=== PATIENT | female | born 1970 | race Caucasian/White ===

== ENCOUNTER 2016-08-23 19:49 | Inpatient (IN) | payer MEDICARE ==
[~2016-08-23 19:49] MED LIST: ADVAIR 2501 DISK W/D INH; ADVAIR 25028 BLISTE1 PO; ADVIL200 M1 PO; ALLER-FLO15.8 ML; ASPIR-TRIN325 MG PO; BACTRIM DS TABL1 TAB PO; CIPRO500 MG PO; COMBIVENT INH14.7 G1 IH; COMBIVENT RESPIM4 G1 INH; COMPAZINE25 MG/SUPP PR; CYMBALTA60 M1 PO; DULOXETINE HCL30 M1 PO; DUONEB 2.5-0.5MG3 M1 NEB; ESTROGEN; FLAGYL500 M1 PO; GABAPENTIN300 MG PO; HUMALOG100 U/ML SQ; HUMULIN R SC; LANTUS SOLOSTAR3 ML SQ; LEVAQUIN750 M1 PO; LEVAQUIN750 MG PO; LEVEMIR FL100 UNIT/2 SQ; LEVEMIR100 UNITS/ SC; LEXAPRO10 MG; LIDOCAINE 5% OINTMEN; LYRICA150 MG PO; LYRICA150 MG/CAP PO; LYRICA200 M1 PO; LYRICA75 MG PO; MELATIN3 MG PO; MELATONIN3 M4 PO; MELOXICAM15 M1 PO; NEURONTIN300 MG PO; NORCO 5/325 TAB1 TAB PO; NORCO 7.5/3251 TA3 PO; NORTRIPTYLINE H25 M1 PO; NOVOLOG FL100 UNIT/2 SQ; NOVOLOG100 UNITS/ SC; PERCOCET 5-3251 EACH PO; PHENERGAN25 MG/SUPP RC; PROTONIX40 MG; SINGULAIR10 M1 PO; TOPIRAMATE25 M3 PO; TOUJEO SOL300 UNIT/1 SC; TRAMADOL HCL50 M2 PO; TRAZODONE HCL100 M1 PO; TRESIBA FL100 UNIT/1 SC; VENTOLIN HFA18 G2 PO; VENTOLIN HFA18 GM INH; VIIBRYD40 MG PO; VITAMIN D2000 UNI1 PO; ZITHROMAX250 M1 PO; ZITHROMAX250MG Z-PAK PO; ZITHROMAX500 M2 PO; ZOFRAN ODT4 MG/UDTAB PO; ZOLOFT100 M1 PO; ZOLOFT100 MG PO; [UNRECOGNIZED DRUG - OTHER]
[2016-08-23] MEDS ORDERED: HUMULIN R500 UNIT/2 SC (21:11)
[2016-08-23] MEDS ORDERED: SPIRIVA18 MC1 INH (21:14)
[2016-08-23 22:31] LABS: BASO % 0.3 % (0-2); EOS % 0.5 % (0-7); EOSINOPHIL ABSOLUTE COUNT 0.1 tho/cmm (0.0-0.7); HCT-HEMATOCRIT 40.6 % (34.0-49.0); HGB-HEMOGLOBIN 13.6 gm/dl (12.0-15.5); IMMATURE GRANULOCYTES ABSOLUTE 0.01 tho/cmm (0-0.03); IMMATURE GRANULOCYTES PERCENT 0.1 % (0-0.3); LYMPH ABSOLUTE COUNT 2.7 tho/cmm (0.8-4.5); MCH (MEAN CORPUSCULAR HGB) 31.9 pg (28.0-32.0); MCHC MEAN CORPUSCULAR HGB CONC 33.5 % (32.0-36.0); MCV (MEAN CELL VOLUME) 95.3 fl (82.0-96.0); MEAN PLATELET VOLUME 12.1 cmc (9.4-12.4); MONO % 8.4 % (0-12); MONOCYTE ABSOLUTE COUNT 0.8 tho/cmm (0.0-1.2); NEUTROPHIL ABSOLUTE COUNT 5.8 tho/cmm (1.6-8.0); NEUTROPHIL-AUTOMATED 5.8 tho/cmm (1.6-8.0); NEUTROPHILS % 61.7 % (40-80); PLATELET COUNT 200 tho/cmm (150-450); RED BLOOD COUNT 4.26 mil/cmm (4.00-5.20); RED CELL DISTRIBUTION WIDTH 12.6 % (12.4-16.4); WHITE BLOOD COUNT 9.4 tho/cmm (4.0-10.0)
[2016-08-23 22:32] LABS: INR 1.1 INR (0.9-1.1); PROTHROMBIN TIME 13.3 SECONDS (9.0-13.6)
[2016-08-23 22:33] LABS: URINE APPEARANCE CLOUDY; URINE BILIRUBIN NEGATIVE (NEG); URINE BLOOD LARGE (NEG); URINE COLOR YELLOW; URINE GLUCOSE (UA) LARGE (NEG); URINE KETONE NEGATIVE (NEG); URINE LEUKOCYTE ESTERASE POSITIVE (NEG); URINE NITRITE NEGATIVE (NEG); URINE PH 6.5 (5.0-8.0); URINE PROTEIN MODERATE (NEG); URINE SPECIFIC GRAVITY 1.005 (1.003-1.030)
[2016-08-23 22:41] LABS: URINE WBC 30-40 /[HPF] (0-5)
[2016-08-23 22:44] LABS: ALB/GLOB RATIO 0.4 (0.8-2.0); ALBUMIN 2.9 g/dl (3.5-5.0); ALKALINE PHOSPHATASE 159 U/L (33-138); ALT/SGPT 33 U/L (12-78); ANION GAP 10 mmol/L (0-20); AST/SGOT 34 U/L (10-40); BILIRUBIN,TOTAL 0.8 mg/dl (0-1.5); BLOOD UREA NITROGEN 10 mg/dl (6-24); C-REACTIVE PROTEIN 11.2 mg/dl (0-0.9); CALCIUM 9.1 mg/dl (8.5-10.5); CARBON DIOXIDE-VENOUS 34 mmol/L (22-32); CHLORIDE 86 mmol/l (96-110); CREATININE 1.34 mg/dl (0.50-1.10); POTASSIUM 3.8 mmol/L (3.7-5.1); SODIUM 126 mmol/L (135-145); eGFR VALUE FOR BLACK 55 mL/Min
[2016-08-23 22:53] LABS: GLUCOSE 583 mg/dL (70-110)
[2016-08-23 23:07] LABS: PROCALCITONIN 0.26 ng/ml (0.05-0.09)
[2016-08-23 23:43] LABS: ESR-ERYTHROCYTE SED RATE 13 mm/hr (0-20)
[2016-08-24 06:04] LABS: BASO % 0.5 % (0-2); EOS % 1.1 % (0-7); EOSINOPHIL ABSOLUTE COUNT 0.1 tho/cmm (0.0-0.7); HCT-HEMATOCRIT 36.1 % (34.0-49.0); HGB-HEMOGLOBIN 12.2 gm/dl (12.0-15.5); IMMATURE GRANULOCYTES ABSOLUTE 0.02 tho/cmm (0-0.03); IMMATURE GRANULOCYTES PERCENT 0.2 % (0-0.3); LYMPH % 32.6 % (20-45); LYMPH ABSOLUTE COUNT 2.9 tho/cmm (0.8-4.5); MCH (MEAN CORPUSCULAR HGB) 31.9 pg (28.0-32.0); MCHC MEAN CORPUSCULAR HGB CONC 33.8 % (32.0-36.0); MCV (MEAN CELL VOLUME) 94.3 fl (82.0-96.0); MEAN PLATELET VOLUME 12.1 cmc (9.4-12.4); MONO % 10.7 % (0-12); MONOCYTE ABSOLUTE COUNT 0.9 tho/cmm (0.0-1.2); NEUTROPHIL ABSOLUTE COUNT 4.8 tho/cmm (1.6-8.0); NEUTROPHIL-AUTOMATED 4.8 tho/cmm (1.6-8.0); NEUTROPHILS % 54.9 % (40-80); PLATELET COUNT 161 tho/cmm (150-450); RED BLOOD COUNT 3.83 mil/cmm (4.00-5.20); RED CELL DISTRIBUTION WIDTH 12.6 % (12.4-16.4); WHITE BLOOD COUNT 8.8 tho/cmm (4.0-10.0)
[2016-08-24 09:53] LABS: BLOOD UREA NITROGEN 10 mg/dl (6-24); CALCIUM 8.3 mg/dl (8.5-10.5); CARBON DIOXIDE-VENOUS 30 mmol/L (22-32); CHLORIDE 94 mmol/l (96-110); CREATININE 0.97 mg/dl (0.50-1.10); eGFR VALUE FOR BLACK 81 mL/Min
[2016-08-24 10:06] LABS: ANION GAP 11 mmol/L (0-20); POTASSIUM 3.9 mmol/L (3.7-5.1); SODIUM 131 mmol/L (135-145)
[2016-08-24 10:07] LABS: GLUCOSE 453 mg/dL (70-110)
--- NOTE | 2016-08-24 21:05 | NUR ---
VIRTUAL CARE NOTE: ASSESSMENT DEFERRED. ATTEMPTED TO ROUND ON PT X3. EITHER SLEEPING OR WITH STAFF. WILL CONTINUE WITH CHART REVIEW.
[2016-08-25 06:04] LABS: BASO % 0.3 % (0-2); EOS % 0.7 % (0-7); EOSINOPHIL ABSOLUTE COUNT 0.1 tho/cmm (0.0-0.7); HCT-HEMATOCRIT 36.4 % (34.0-49.0); HGB-HEMOGLOBIN 12.2 gm/dl (12.0-15.5); IMMATURE GRANULOCYTES ABSOLUTE 0.02 tho/cmm (0-0.03); IMMATURE GRANULOCYTES PERCENT 0.3 % (0-0.3); LYMPH % 21.5 % (20-45); LYMPH ABSOLUTE COUNT 1.6 tho/cmm (0.8-4.5); MCH (MEAN CORPUSCULAR HGB) 32.1 pg (28.0-32.0); MCHC MEAN CORPUSCULAR HGB CONC 33.5 % (32.0-36.0); MCV (MEAN CELL VOLUME) 95.8 fl (82.0-96.0); MEAN PLATELET VOLUME 12.1 cmc (9.4-12.4); MONO % 7.9 % (0-12); MONOCYTE ABSOLUTE COUNT 0.6 tho/cmm (0.0-1.2); NEUTROPHIL ABSOLUTE COUNT 5.3 tho/cmm (1.6-8.0); NEUTROPHIL-AUTOMATED 5.3 tho/cmm (1.6-8.0); NEUTROPHILS % 69.3 % (40-80); PLATELET COUNT 144 tho/cmm (150-450); RED CELL DISTRIBUTION WIDTH 12.7 % (12.4-16.4); WHITE BLOOD COUNT 7.6 tho/cmm (4.0-10.0)
[2016-08-25 06:06] LABS: INR 1.1 INR (0.9-1.1); PROTHROMBIN TIME 13.3 SECONDS (9.0-13.6)
[2016-08-25 06:13] LABS: ANION GAP 10 mmol/L (0-20); BLOOD UREA NITROGEN 7 mg/dl (6-24); CALCIUM 8.5 mg/dl (8.5-10.5); CARBON DIOXIDE-VENOUS 31 mmol/L (22-32); CHLORIDE 99 mmol/l (96-110); GLUCOSE 365 mg/dL (70-110); POTASSIUM 4.5 mmol/L (3.7-5.1); SODIUM 135 mmol/L (135-145); eGFR VALUE FOR BLACK 78 mL/Min
--- NOTE | 2016-08-25 22:22 | NUR ---
VN/LEADER ROUNDING-VISITED WITH PATIENT AND SPOUSE. PATIENT IS DOING BETTER AND STATES PAIN IS STAYING UNDER CONTROL. SHE STATES SHE ONLY HAS TO USE THE CALL LIGHT TO GO TO THE BATHROOM BUT SHE CAN NOW GO MOST OF THE TIME BY HERSELF-REVIEWED WITH BEDSIDE NURSE THAT SHE SHOULD NOT GO BY HERSELF SHEIS A HIGH FALL RISK. PATIENT STATES CARE HAS BEEN GRET AND HAS NO FURTHER QUESTIONS OR CONCERNS AT THIS TIME.
[2016-08-26 05:48] LABS: BASO % 0.3 % (0-2); EOS % 1.6 % (0-7); EOSINOPHIL ABSOLUTE COUNT 0.1 tho/cmm (0.0-0.7); HCT-HEMATOCRIT 34.4 % (34.0-49.0); HGB-HEMOGLOBIN 11.4 gm/dl (12.0-15.5); IMMATURE GRANULOCYTES ABSOLUTE 0.01 tho/cmm (0-0.03); IMMATURE GRANULOCYTES PERCENT 0.2 % (0-0.3); LYMPH % 39.7 % (20-45); LYMPH ABSOLUTE COUNT 2.3 tho/cmm (0.8-4.5); MCH (MEAN CORPUSCULAR HGB) 31.6 pg (28.0-32.0); MCHC MEAN CORPUSCULAR HGB CONC 33.1 % (32.0-36.0); MCV (MEAN CELL VOLUME) 95.3 fl (82.0-96.0); MEAN PLATELET VOLUME 11.8 cmc (9.4-12.4); MONO % 9.7 % (0-12); MONOCYTE ABSOLUTE COUNT 0.6 tho/cmm (0.0-1.2); NEUTROPHIL ABSOLUTE COUNT 2.8 tho/cmm (1.6-8.0); NEUTROPHIL-AUTOMATED 2.8 tho/cmm (1.6-8.0); NEUTROPHILS % 48.5 % (40-80); PLATELET COUNT 138 tho/cmm (150-450); RED BLOOD COUNT 3.61 mil/cmm (4.00-5.20); RED CELL DISTRIBUTION WIDTH 12.7 % (12.4-16.4); WHITE BLOOD COUNT 5.8 tho/cmm (4.0-10.0)
[2016-08-26 06:03] LABS: ALB/GLOB RATIO 0.4 (0.8-2.0); ALBUMIN 2.1 g/dl (3.5-5.0); ALKALINE PHOSPHATASE 110 U/L (33-138); ALT/SGPT 18 U/L (12-78); ANION GAP 10 mmol/L (0-20); AST/SGOT 20 U/L (10-40); BILIRUBIN,TOTAL 0.4 mg/dl (0-1.5); BLOOD UREA NITROGEN 8 mg/dl (6-24); CALCIUM 8.3 mg/dl (8.5-10.5); CARBON DIOXIDE-VENOUS 28 mmol/L (22-32); CHLORIDE 101 mmol/l (96-110); CREATININE 0.86 mg/dl (0.50-1.10); GLUCOSE 355 mg/dL (70-110); SODIUM 136 mmol/L (135-145); eGFR VALUE FOR BLACK >90 mL/Min
[2016-08-26 06:09] LABS: POTASSIUM 3.4 mmol/L (3.7-5.1)
--- NOTE | 2016-08-26 16:42 | NUR ---
virtual care note: visited with pt at this time. she offers her concerns regarding the amount of time she had to wait in the bathroom. encouraged her to continue to call for assistance, as she is a fall risk. pt is alert/oriented, has family at bedside. pt also states she has a red, puffy, painful spot to her inner left hand. from my view, it does appear to be swollen. she also states it is hot to touch. paged this to her nurse, as well as requested a pain pill to treat her pain and KDUR to treat her K+ from this am that was 3.4. d/w the pt the plan for possible alf antibiotics, PICC placement, etc with the dx of positive blood cultures. states she has had [facility] in the past and would be willing to go that route again should the SW deem it necessary and possible. will continue to monitor. electronic chart reviewed.
--- NOTE | 2016-08-26 23:28 | NUR ---
VN NOTE-PATIENT REQUESTED AT 2257 TO COME IN BY [facility] AND SPEAK WITH HER. SHE WAS UPSET WITH BEDSIDE NURSE OF TELLING HER SHE COULD NOT HAVE APPLESAUCE WITH HER PILLS AND NEEDED TO SEE A FINISHING PAN OPERATOR AND WAS REFUSED A SANDWICH BEFORE SHE WENT TO BED. PATIENT STATES SHE IS AWARE OF HER BLOOD SUGAR AND IT ALWAYS RUNS HIGH AND HAS BEEN EDUCATED ON HER DIABETES AND DID NOT APPRECIATE BEING TALKED TO AND TREATED LIKE SHE WAS. I APOLOGIZED REASSURING HER THAT WAS NOT THE NURSES INTENTION BUT RATHER TO HELP HER STAY WITHIN HER DIABETIC DIET AND CARBS TO KEEP BLOOD SUGARS BETTER CONTROLLED. WE REVIEWED WHY IT IS IMPORTANT. SHE SAID SHE WILL START SHAKING THRU THE NIGHT IF NO SANDWICH SO GOT HER TO AGREE TO HALF A SANDWICH WITH ALL THE MEAT FROM THE WHOLE SANDWICH AND SEE HOW THAT GOES AND IF CONCERNED OF LOW BLOOD SUGAR THE NURSE CAN CHECK HER BLOOD GLUCOSE. EDUCATED PATIENT AND ENC HER TO TRY AND WORK WITH THE STAFF TRYING TO HELP HER. SHE SAID SHE LIKED VEGETABLES SO I SUGGESTED SHE COULD REQUEST FOR HER SUPPER MEAL SOMETHING FOR AN HS SNACK OF VEGETABLES OR SALAD. SHE IS WILLING TO TRY IT. LET RN KNOW OF CONVERSATION AND LET PATIENT KNOW THE DOCTOR MAY NEED TO REENFORCE DIETARY EXPECTATIONS. PATIENT WAS MORE CALM AND AGREEABLE AND SAID SHE JUST WANTS TO GO HOME SOON - MISSES HER DOG
[2016-08-27 04:44] LABS: BASO % 0.5 % (0-2); EOS % 2.5 % (0-7); EOSINOPHIL ABSOLUTE COUNT 0.2 tho/cmm (0.0-0.7); HCT-HEMATOCRIT 36.8 % (34.0-49.0); HGB-HEMOGLOBIN 12.2 gm/dl (12.0-15.5); IMMATURE GRANULOCYTES ABSOLUTE 0.02 tho/cmm (0-0.03); IMMATURE GRANULOCYTES PERCENT 0.3 % (0-0.3); LYMPH % 42.8 % (20-45); LYMPH ABSOLUTE COUNT 2.6 tho/cmm (0.8-4.5); MCH (MEAN CORPUSCULAR HGB) 31.9 pg (28.0-32.0); MCHC MEAN CORPUSCULAR HGB CONC 33.2 % (32.0-36.0); MCV (MEAN CELL VOLUME) 96.3 fl (82.0-96.0); MEAN PLATELET VOLUME 11.7 cmc (9.4-12.4); MONOCYTE ABSOLUTE COUNT 0.5 tho/cmm (0.0-1.2); NEUTROPHIL ABSOLUTE COUNT 2.8 tho/cmm (1.6-8.0); NEUTROPHIL-AUTOMATED 2.8 tho/cmm (1.6-8.0); NEUTROPHILS % 45.9 % (40-80); PLATELET COUNT 171 tho/cmm (150-450); RED BLOOD COUNT 3.82 mil/cmm (4.00-5.20); RED CELL DISTRIBUTION WIDTH 12.9 % (12.4-16.4); WHITE BLOOD COUNT 6.1 tho/cmm (4.0-10.0)
[2016-08-27] MEDS ORDERED: OMEPRAZOLE40 M2 PO (12:05)
[2016-08-27] MEDS ORDERED: ELOCON TOP (12:07)
[2016-08-27] MEDS ORDERED: CLINDAMYCIN PHO60 M1 TOP (12:09)
--- NOTE | 2016-08-27 16:56 | NUR ---
VIRTUAL CARE NOTE: PT RESTING ON BED, FAMILY AT BEDSIDE. PT STATES DOING OK TODAY. PT ASKING ABOUT WHEN SHE CAN GO HOME, EXPLAINED TO HER THAT ORTHO CX FOR LT HAND PAIN AND SWELLING SO MORE LIKELY NO DISCHARGE PLAN TODAY. PT ASKS ABOUT HER 2PM SNACK THAT IS NOT DELIVERED TO THE ROOM AND HER NURSE SAID WILL CHECK ONTO IT BUT SHE DID NOT HEAR BACK YET. VN PAGED TO MARCI RN TO FOLLOW UP ON HER SNACK BUT ALSO INFOMRED PT THAT DINNER WILL DELIVER SOON. PT DENIES FURTHER QUESTIONS OR NEEDS AT THIS TIME.
[2016-08-28 06:00] LABS: HGB-HEMOGLOBIN 11.9 gm/dl (12.0-15.5); PLATELET COUNT 168 tho/cmm (150-450)
[2016-08-28 12:50] LABS: BASO % 0.4 % (0-2); EOS % 1.8 % (0-7); EOSINOPHIL ABSOLUTE COUNT 0.1 tho/cmm (0.0-0.7); HCT-HEMATOCRIT 36.1 % (34.0-49.0); HGB-HEMOGLOBIN 11.9 gm/dl (12.0-15.5); IMMATURE GRANULOCYTES ABSOLUTE 0.02 tho/cmm (0-0.03); IMMATURE GRANULOCYTES PERCENT 0.4 % (0-0.3); LYMPH ABSOLUTE COUNT 2.4 tho/cmm (0.8-4.5); MCH (MEAN CORPUSCULAR HGB) 31.6 pg (28.0-32.0); MEAN PLATELET VOLUME 11.5 cmc (9.4-12.4); MONO % 7.2 % (0-12); MONOCYTE ABSOLUTE COUNT 0.4 tho/cmm (0.0-1.2); NEUTROPHIL ABSOLUTE COUNT 2.7 tho/cmm (1.6-8.0); NEUTROPHIL-AUTOMATED 2.7 tho/cmm (1.6-8.0); NEUTROPHILS % 48.2 % (40-80); PLATELET COUNT 172 tho/cmm (150-450); RED BLOOD COUNT 3.76 mil/cmm (4.00-5.20); RED CELL DISTRIBUTION WIDTH 13.2 % (12.4-16.4); WHITE BLOOD COUNT 5.7 tho/cmm (4.0-10.0)
[2016-08-28 13:01] LABS: ANION GAP 11 mmol/L (0-20); BLOOD UREA NITROGEN 7 mg/dl (6-24); CALCIUM 7.5 mg/dl (8.5-10.5); CARBON DIOXIDE-VENOUS 28 mmol/L (22-32); CHLORIDE 105 mmol/l (96-110); CREATININE 0.97 mg/dl (0.50-1.10); GLUCOSE 294 mg/dL (70-110); POTASSIUM 4.7 mmol/L (3.7-5.1); SODIUM 139 mmol/L (135-145); eGFR VALUE FOR BLACK 81 mL/Min
--- NOTE | 2016-08-28 20:55 | NUR ---
VIRTUAL CARE NOTE: PT. IN BED WITH IN THE ROOM. EDUCATION PROVIDED THAT THIS NURSE JUST TALKED TO THE DOCTOR SENIOR NET PROGRAMMER REGARDING HER DIET. INSTRUTIONS GIVEN THAT SHE CAN HAVE HER DIABETIC DIET ONCE AGAIN AND THE IMPORTANCE OF DIABETIC CONTROL NEEDED FOR WOUND HEALING. ALSO EDUCATION PROVIDED THAT SHE NEEDS TO TRY TO ELEVATE HER LEFT HAND ON A PILLOW DECREASE SWELLING AND HEALING. ALSO ENCOURAGE PT. TO AMBULATE IN THE HALLWAYS WHEN ABLE WITH HELP. DENIES FURTHER NEEDS AT THIS TIME, INSTRUCTED TO CALL FOR FUTURE NEEDS, STATES VERBAL AGREEMENT.
[2016-08-29 05:52] LABS: GLUCOSE 462 mg/dl (65-120)
[2016-08-29 06:16] LABS: BLOOD UREA NITROGEN 12 mg/dl (6-24); CALCIUM 8.6 mg/dl (8.5-10.5); CARBON DIOXIDE-VENOUS 26 mmol/L (22-32); CHLORIDE 101 mmol/l (96-110); CREATININE 1.14 mg/dl (0.50-1.10); SODIUM 135 mmol/L (135-145); eGFR VALUE FOR BLACK 66 mL/Min
[2016-08-29 06:28] LABS: ANION GAP 12 mmol/L (0-20)
[2016-08-29 06:29] LABS: POTASSIUM 4.4 mmol/L (3.7-5.1)
--- NOTE | 2016-08-29 19:39 | NUR ---
VIRTUAL CARE NOTE: PT REQUESTED COTTAGE CHEESE AND FRUIT AN HS SNACK. CALLED DIETARY (AT 1845) AND THEY SAID SHE HAS MET HER CARB LIMIT FOR THE DAY BUT THEY CAN SEND THE COTTAGE CHEESE AND MAYBE SOME SUGAR FREE JELLO. REVIEWED WITH PT. SHE V/U OF THIS. EDUCATED ON CARB LIMITS AND NEED TO FOLLOW THEM TO CONTROL HER SUGARS. PT SAID SHE HAD BEEN REQUESTING TO GO THE [facility]IFT [facility]OP ALL AFTERNOON. I TOLD HER I WAS WORRIED ABOUT FALLING AND HER LIMITED USE OF HER HAND/ARM. SHE SAID SHE FELT LIKE SHE COULD WALK THERE. TOLD HER MAYBE THE NURSE CAN EVAL HER IN THE [place] ON HER STABILITY OR MAYBE THE CAN TAKE HER IN A WHEELCHAIR. SHE JUST HAS IVF GOING SO SAID WE COULD SL WHILE SHE GOES SO THATS ONE LESS TRIPPING HAZARD. MALGORZATA OBRIEN AND FLOOR RN ABOVE INFO R/G SNACK AND GIFT SHOP. ASKED PT TO CALL WITH FURTHER QUESTIONS/CONCERNS/NEEDS. SHE V/U.
[2016-08-30 06:06] LABS: HGB-HEMOGLOBIN 11.9 gm/dl (12.0-15.5); PLATELET COUNT 160 tho/cmm (150-450)
[2016-08-30] MEDS ORDERED: VANCOMYCIN HCL500 MG PR (11:55)
[2016-08-30] MEDS ORDERED: LEVEMIR100 UNITS/ SC (11:58)
[2016-08-30] MEDS ORDERED: CULTURELLE1 EAC2 PO (11:58)
[2016-08-30] MEDS ORDERED: [UNRECOGNIZED DRUG - SUPPLY] (11:59)
--- NOTE | 2016-08-30 13:19 | NUR ---
CHANGED DRESSING TO CHEST, SOAKED HAND DRESSING, AND CHANGED DRESSING TO HAND GAVE SUPPLIES FOR HOME USE PER MD SCRIPT. TO HAVE HOME INFUSIONS START AT HER HOUSE TOMORROW AT 8AM.
[2016-10-09] MEDS ORDERED: OXYGEN INH (19:11)
[2016-10-09] MEDS ORDERED: AMOXICILLIN500 M1 PO (20:40)
[2016-10-09] MEDS ORDERED: PERCOCET 5-3251 EACH PO (20:40)
[2016-10-11] MEDS ORDERED: CYMBALTA60 M1 PO (14:45)
[2016-10-13] MEDS ORDERED: CYMBALTA60 M1 PO (03:18)
[2016-10-17] MEDS ORDERED: VIBRAMYCIN100 M1 PO (13:39)
[2016-10-17] MEDS ORDERED: FLONASE ALLERG9.9 ML (14:11)
[2016-12-07] MEDS ORDERED: HUMULIN R500 UNIT/1 SC (22:51)
[2016-12-10] MEDS ORDERED: SULFAMYLON SOL250 M1 TP (12:17)
[2016-12-10] MEDS ORDERED: PERCOCET 5-3251 EACH PO (12:19)
[2016-12-10] MEDS ORDERED: SINGULAIR10 M1 PO (12:21)
[2016-12-10] MEDS ORDERED: SULFAMYLON60 GM (12:23)
[2016-12-10] MEDS ORDERED: AUGMENTIN 875-1 EAC2 PO (12:26)
[2017-01-10] MEDS ORDERED: MINOCYCLINE HC100 M1 PO (15:23)
[2017-01-10] MEDS ORDERED: PERCOCET 5-3251 EACH PO (15:57)
[2017-01-10] MEDS ORDERED: SULFAMYLON SOL250 M1 TOP (15:58)
[2017-01-10] MEDS ORDERED: NYSTATIN100000 UNI SSW (16:03)
[2017-02-06] MEDS ORDERED: ADVAIR 25028 BLISTE1 PO (15:36)
[2017-02-06] MEDS ORDERED: CYMBALTA60 M1 PO (15:36)
[2017-02-06] MEDS ORDERED: CLEOCIN T30 ML TOP (15:38)
[2017-02-06] MEDS ORDERED: FLONASE ALLERG9.9 ML (15:39)
[2017-02-06] MEDS ORDERED: MINOCIN100 M2 PO (15:40)
[2017-02-06] MEDS ORDERED: MOMETASONE FURO30 M1 TOP (15:41)
[2017-02-06] MEDS ORDERED: NYSTATIN100000 UNI SSP (15:44)
[2017-02-06] MEDS ORDERED: PERCOCET 5-3251 EACH PO (15:55)
[2017-02-06] MEDS ORDERED: VOLTAREN100 G1 TP (15:58)
[2017-02-06] MEDS ORDERED: ZOLOFT100 M1 PO (16:06)
[2017-02-06] MEDS ORDERED: SPIRIVA RESPIMAT4 G1 INH (16:08)
[2017-02-06] MEDS ORDERED: SULFAMYLON60 GM TOP (16:17)
== END 2016-08-30 20:00 | disposition home health service (06) | DRG 854 ==
LOC: EDMED 19:49 → EMR2 08-24 01:11 → 5WD 08-24 02:30
PROVIDERS: Emergency Medicine; Family Medicine; Internal Medicine; Registered Nurse; ADMIT Hospitalist
PROC: 0J960ZZ Drainage of Chest Subcutaneous Tissue and Fascia, Open Approach (ICD-10-PCS; principal; 2016-08-24)
PROC: 5A09357 Assistance with Respiratory Ventilation, Less than 24 Consecutive Hours, Continuous Positive Airway Pressure (ICD-10-PCS; 2016-08-24)
PROC: 02HV33Z Insertion of Infusion Device into Superior Vena Cava, Percutaneous Approach (ICD-10-PCS; 2016-08-27)
PROC: 0J9K0ZZ Drainage of Left Hand Subcutaneous Tissue and Fascia, Open Approach (ICD-10-PCS; 2016-08-28)
PROC: B246ZZ4 Ultrasonography of Right and Left Heart, Transesophageal (ICD-10-PCS; 2016-08-30)
DX: A41.01 Sepsis due to Methicillin susceptible Staphylococcus aureus (principal); L02.213 Cutaneous abscess of chest wall; N17.9 Acute kidney failure, unspecified; E11.42 Type 2 diabetes mellitus with diabetic polyneuropathy; E11.65 Type 2 diabetes mellitus with hyperglycemia; N39.0 Urinary tract infection, site not specified; L02.512 Cutaneous abscess of left hand; L03.313 Cellulitis of chest wall; E87.1 Hypo-osmolality and hyponatremia; L03.114 Cellulitis of left upper limb; B95.61 Methicillin susceptible Staphylococcus aureus infection as the cause of diseases classified elsewhere; L28.0 Lichen simplex chronicus; J44.9 Chronic obstructive pulmonary disease, unspecified; F32.9 Major depressive disorder, single episode, unspecified; J45.909 Unspecified asthma, uncomplicated; E66.9 Obesity, unspecified; Z68.35 Body mass index [BMI] 35.0-35.9, adult; F17.210 Nicotine dependence, cigarettes, uncomplicated; Z79.4 Long term (current) use of insulin; Z88.1 Allergy status to other antibiotic agents; Z91.030 Bee allergy status; Z88.8 Allergy status to other drugs, medicaments and biological substances; Z91.048 Other nonmedicinal substance allergy status; R21 Rash and other nonspecific skin eruption; F79 Unspecified intellectual disabilities; Z91.19 Patient's noncompliance with other medical treatment and regimen
CPT/HCPCS: A9577; C1751; J1650; J1815; J2250; J2270; J2543; J3010; J3370; J7030

== ENCOUNTER 2016-09-14 18:10 | Inpatient (IN) | payer MEDICARE ==
[~2016-09-14 18:10] MED LIST changes: +CLINDAMYCIN PHO60 M1 TOP; +CULTURELLE1 EAC2 PO; +ELOCON TOP; +HUMULIN R500 UNIT/2 SC; +OMEPRAZOLE40 M2 PO; +SPIRIVA18 MC1 INH; +VANCOMYCIN HCL500 MG PR; +[UNRECOGNIZED DRUG - SUPPLY]
[2016-09-14 20:55] LABS: BASO % 0.4 % (0-2); BASO ABSOLUTE COUNT 0.1 tho/cmm (0.0-0.2); EOS % 0.2 % (0-7); HCT-HEMATOCRIT 38.4 % (34.0-49.0); HGB-HEMOGLOBIN 12.6 gm/dl (12.0-15.5); LYMPH % 17.1 % (20-45); LYMPH ABSOLUTE COUNT 2.2 tho/cmm (0.8-4.5); MCH (MEAN CORPUSCULAR HGB) 31.2 pg (28.0-32.0); MCHC MEAN CORPUSCULAR HGB CONC 32.8 % (32.0-36.0); MEAN PLATELET VOLUME 12.2 cmc (9.4-12.4); MONOCYTE ABSOLUTE COUNT 1.4 tho/cmm (0.0-1.2); NEUTROPHIL ABSOLUTE COUNT 9.2 tho/cmm (1.6-8.0); NEUTROPHIL-AUTOMATED 9.2 tho/cmm (1.6-8.0); NEUTROPHILS % 71.3 % (40-80); PLATELET COUNT 141 tho/cmm (150-450); RED BLOOD COUNT 4.04 mil/cmm (4.00-5.20); RED CELL DISTRIBUTION WIDTH 13.5 % (12.4-16.4); WHITE BLOOD COUNT 12.9 tho/cmm (4.0-10.0)
[2016-09-14 21:04] LABS: ALB/GLOB RATIO 0.5 (0.8-2.0); ALBUMIN 2.8 g/dl (3.5-5.0); ALKALINE PHOSPHATASE 174 U/L (33-138); ALT/SGPT 48 U/L (12-78); ANION GAP 11 mmol/L (0-20); AST/SGOT 38 U/L (10-40); BILIRUBIN,TOTAL 0.8 mg/dl (0-1.5); BLOOD UREA NITROGEN 14 mg/dl (6-24); CARBON DIOXIDE-VENOUS 27 mmol/L (22-32); CHLORIDE 94 mmol/l (96-110); GLUCOSE 414 mg/dL (70-110); POTASSIUM 4.1 mmol/L (3.7-5.1); SODIUM 128 mmol/L (135-145); eGFR VALUE FOR BLACK 69 mL/Min
[2016-09-14 23:21] LABS: C-REACTIVE PROTEIN 22.1 mg/dl (0-0.9)
[2016-09-15 01:01] LABS: INR 1.2 INR (0.9-1.1); PROTHROMBIN TIME 13.7 SECONDS (9.0-13.6)
[2016-09-15 01:11] LABS: ALB/GLOB RATIO 0.4 (0.8-2.0); ALBUMIN 2.3 g/dl (3.5-5.0); ALKALINE PHOSPHATASE 148 U/L (33-138); ALT/SGPT 38 U/L (12-78); ANION GAP 12 mmol/L (0-20); AST/SGOT 27 U/L (10-40); BILIRUBIN,TOTAL 0.7 mg/dl (0-1.5); BLOOD UREA NITROGEN 14 mg/dl (6-24); CALCIUM 8.1 mg/dl (8.5-10.5); CARBON DIOXIDE-VENOUS 26 mmol/L (22-32); CHLORIDE 98 mmol/l (96-110); CREATININE 0.94 mg/dl (0.50-1.10); GLUCOSE 353 mg/dL (70-110); POTASSIUM 3.9 mmol/L (3.7-5.1); SODIUM 132 mmol/L (135-145); eGFR VALUE FOR BLACK 84 mL/Min
[2016-09-15 01:34] LABS: PROCALCITONIN 0.83 ng/ml (0.05-0.09)
[2016-09-15 06:21] LABS: BASO % 0.1 % (0-2); EOS % 1.2 % (0-7); EOSINOPHIL ABSOLUTE COUNT 0.1 tho/cmm (0.0-0.7); HCT-HEMATOCRIT 32.3 % (34.0-49.0); HGB-HEMOGLOBIN 10.9 gm/dl (12.0-15.5); IMMATURE GRANULOCYTES ABSOLUTE 0.02 tho/cmm (0-0.03); IMMATURE GRANULOCYTES PERCENT 0.2 % (0-0.3); LYMPH % 27.6 % (20-45); LYMPH ABSOLUTE COUNT 2.7 tho/cmm (0.8-4.5); MCH (MEAN CORPUSCULAR HGB) 31.7 pg (28.0-32.0); MCHC MEAN CORPUSCULAR HGB CONC 33.7 % (32.0-36.0); MCV (MEAN CELL VOLUME) 93.9 fl (82.0-96.0); MEAN PLATELET VOLUME 11.6 cmc (9.4-12.4); MONO % 9.8 % (0-12); NEUTROPHIL ABSOLUTE COUNT 5.9 tho/cmm (1.6-8.0); NEUTROPHIL-AUTOMATED 5.9 tho/cmm (1.6-8.0); NEUTROPHILS % 61.1 % (40-80); PLATELET COUNT 123 tho/cmm (150-450); RED BLOOD COUNT 3.44 mil/cmm (4.00-5.20); RED CELL DISTRIBUTION WIDTH 13.9 % (12.4-16.4); WHITE BLOOD COUNT 9.7 tho/cmm (4.0-10.0)
[2016-09-15 06:37] LABS: ANION GAP 9 mmol/L (0-20); BLOOD UREA NITROGEN 12 mg/dl (6-24); CARBON DIOXIDE-VENOUS 27 mmol/L (22-32); CHLORIDE 100 mmol/l (96-110); CREATININE 0.88 mg/dl (0.50-1.10); GLUCOSE 326 mg/dL (70-110); SODIUM 132 mmol/L (135-145); eGFR VALUE FOR BLACK >90 mL/Min
--- NOTE | 2016-09-15 15:53 | NUR ---
VIRTUAL CARE NOTE: PT RESTING ON BED IV BEEPING IN THE ROOM, VN NOTIFIED PRIMARY NURSE RE: IV ALARM. PT STATES DOING OK TODAY, HAD LT TOE I&D DONE AT BEDSIDE PER , WILL PLAN TO HAVE WOUND DEBRIDEMENT AND POSS LT 1ST TOE AMPUTATION TOMORROW. PRE-OP ORDER REINFORCED, NPO AFTER MN. PT DENIES ANY NEEDS OR QUESTIONS AT THIS TIME.
[2016-09-16 05:30] LABS: HGB-HEMOGLOBIN 11.1 gm/dl (12.0-15.5); PLATELET COUNT 139 tho/cmm (150-450)
[2016-09-17 05:15] LABS: BASO % 0.4 % (0-2); EOS % 1.8 % (0-7); EOSINOPHIL ABSOLUTE COUNT 0.2 tho/cmm (0.0-0.7); IMMATURE GRANULOCYTES ABSOLUTE 0.03 tho/cmm (0-0.03); IMMATURE GRANULOCYTES PERCENT 0.3 % (0-0.3); LYMPH % 30.8 % (20-45); LYMPH ABSOLUTE COUNT 3.1 tho/cmm (0.8-4.5); MCH (MEAN CORPUSCULAR HGB) 31.1 pg (28.0-32.0); MCHC MEAN CORPUSCULAR HGB CONC 32.4 % (32.0-36.0); MEAN PLATELET VOLUME 11.7 cmc (9.4-12.4); MONOCYTE ABSOLUTE COUNT 0.7 tho/cmm (0.0-1.2); NEUTROPHIL ABSOLUTE COUNT 5.9 tho/cmm (1.6-8.0); NEUTROPHIL-AUTOMATED 5.9 tho/cmm (1.6-8.0); NEUTROPHILS % 59.7 % (40-80); PLATELET COUNT 174 tho/cmm (150-450); RED BLOOD COUNT 3.54 mil/cmm (4.00-5.20); RED CELL DISTRIBUTION WIDTH 14.1 % (12.4-16.4)
[2016-09-17 05:29] LABS: ANION GAP 12 mmol/L (0-20); BLOOD UREA NITROGEN 12 mg/dl (6-24); CALCIUM 8.7 mg/dl (8.5-10.5); CARBON DIOXIDE-VENOUS 27 mmol/L (22-32); CHLORIDE 104 mmol/l (96-110); CREATININE 0.96 mg/dl (0.50-1.10); GLUCOSE 247 mg/dL (70-110); POTASSIUM 3.8 mmol/L (3.7-5.1); SODIUM 139 mmol/L (135-145); eGFR VALUE FOR BLACK 82 mL/Min
--- NOTE | 2016-09-17 18:44 | NUR ---
VIRTUAL CARE NOTE: STATES IS HAVING PAIN IN HER TOE AND SAY THEY HAD TO CUT IT OFF. VERBAL ENCOURAGEMENT GIVEN AND PRAISE GIVEN FOR HER TO KEEP HER FOOT ELEVATED TO HELP WITH PAIN AND SWELLING. ALSO EDUCATION REVIEWED ON TO CALL FOR HELP BEFORE GETTING OUT OF BED. ALSO INSTRUCTED TO CALL FOR FUTURE NEEDS. INSTRUCTED THAT IF PAIN MEDICATION WASN'T NOT HELPING WITHIN 15 MORE MINUTES TO CALL THE NURSE FOR MORE MEDS. STATES VERBAL UNDERSTANDING.
[2016-09-18 04:54] LABS: BASO % 0.6 % (0-2); BASO ABSOLUTE COUNT 0.1 tho/cmm (0.0-0.2); EOS % 1.8 % (0-7); EOSINOPHIL ABSOLUTE COUNT 0.2 tho/cmm (0.0-0.7); HCT-HEMATOCRIT 34.3 % (34.0-49.0); HGB-HEMOGLOBIN 11.3 gm/dl (12.0-15.5); IMMATURE GRANULOCYTES ABSOLUTE 0.03 tho/cmm (0-0.03); IMMATURE GRANULOCYTES PERCENT 0.4 % (0-0.3); LYMPH % 37.3 % (20-45); LYMPH ABSOLUTE COUNT 3.1 tho/cmm (0.8-4.5); MCH (MEAN CORPUSCULAR HGB) 31.4 pg (28.0-32.0); MCHC MEAN CORPUSCULAR HGB CONC 32.9 % (32.0-36.0); MCV (MEAN CELL VOLUME) 95.3 fl (82.0-96.0); MEAN PLATELET VOLUME 11.5 cmc (9.4-12.4); MONOCYTE ABSOLUTE COUNT 0.6 tho/cmm (0.0-1.2); NEUTROPHIL ABSOLUTE COUNT 4.4 tho/cmm (1.6-8.0); NEUTROPHIL-AUTOMATED 4.4 tho/cmm (1.6-8.0); NEUTROPHILS % 52.9 % (40-80); PLATELET COUNT 198 tho/cmm (150-450); RED CELL DISTRIBUTION WIDTH 14.3 % (12.4-16.4); WHITE BLOOD COUNT 8.3 tho/cmm (4.0-10.0)
[2016-09-18 05:01] LABS: ANION GAP 12 mmol/L (0-20); BLOOD UREA NITROGEN 9 mg/dl (6-24); CALCIUM 9.2 mg/dl (8.5-10.5); CARBON DIOXIDE-VENOUS 28 mmol/L (22-32); CHLORIDE 106 mmol/l (96-110); CREATININE 0.89 mg/dl (0.50-1.10); GLUCOSE 129 mg/dL (70-110); POTASSIUM 3.5 mmol/L (3.7-5.1); SODIUM 142 mmol/L (135-145); eGFR VALUE FOR BLACK 89 mL/Min
[2016-09-18] MEDS ORDERED: AMOXICILLIN500 M1 PO ×2 (09:57→19:09)
[2016-09-18] MEDS ORDERED: HUMALOG100 UNITS/ SC ×2 (09:58→17:27)
--- NOTE | 2016-09-18 13:50 | NUR ---
VIRTUAL CARE NOTE: CHECKED ON PT AT THIS TIME. SHE'S SITTING UP IN HER CHAIR WATCHING TELEVISION. NO FAMILY PRESENT. STATES SHE THOUGHT SHE WOULD BE GOING HOME THIS AFTERNOON-DOES HAVE ORDERS, BUT NEEDS TO GET THE WOUND VAC APPROVAL FROM INSURANCE FIRST. SW ON THE CASE-TAKING CARE OF THIS. WE DISCUSSED THIS LIKELIHOOD DURING DC ROUNDS THIS MORNING. WOUND VAC WAS APPLIED TO FOOT WOUND THIS LATE MORNING BY STAFF. WILL AWAIT FURTHER INSTRUCTION. ELECTRONIC CHART REVIEWED.
[2016-09-18] MEDS ORDERED: PERCOCET 5-3251 EACH PO (17:25)
[2016-10-09] MEDS ORDERED: OXYGEN INH (19:11)
[2016-10-09] MEDS ORDERED: PERCOCET 5-3251 EACH PO (20:40)
[2016-10-09] MEDS ORDERED: AMOXICILLIN500 M1 PO (20:40)
[2016-10-11] MEDS ORDERED: CYMBALTA60 M1 PO (14:45)
[2016-10-13] MEDS ORDERED: CYMBALTA60 M1 PO (03:18)
[2016-10-17] MEDS ORDERED: VIBRAMYCIN100 M1 PO (13:39)
[2016-10-17] MEDS ORDERED: FLONASE ALLERG9.9 ML (14:11)
[2016-12-07] MEDS ORDERED: HUMULIN R500 UNIT/1 SC (22:51)
[2016-12-10] MEDS ORDERED: SULFAMYLON SOL250 M1 TP (12:17)
[2016-12-10] MEDS ORDERED: PERCOCET 5-3251 EACH PO (12:19)
[2016-12-10] MEDS ORDERED: SINGULAIR10 M1 PO (12:21)
[2016-12-10] MEDS ORDERED: SULFAMYLON60 GM (12:23)
[2016-12-10] MEDS ORDERED: AUGMENTIN 875-1 EAC2 PO (12:26)
[2017-01-10] MEDS ORDERED: MINOCYCLINE HC100 M1 PO (15:23)
[2017-01-10] MEDS ORDERED: PERCOCET 5-3251 EACH PO (15:57)
[2017-01-10] MEDS ORDERED: SULFAMYLON SOL250 M1 TOP (15:58)
[2017-01-10] MEDS ORDERED: NYSTATIN100000 UNI SSW (16:03)
[2017-02-06] MEDS ORDERED: ADVAIR 25028 BLISTE1 PO (15:36)
[2017-02-06] MEDS ORDERED: CYMBALTA60 M1 PO (15:36)
[2017-02-06] MEDS ORDERED: CLEOCIN T30 ML TOP (15:38)
[2017-02-06] MEDS ORDERED: FLONASE ALLERG9.9 ML (15:39)
[2017-02-06] MEDS ORDERED: MINOCIN100 M2 PO (15:40)
[2017-02-06] MEDS ORDERED: MOMETASONE FURO30 M1 TOP (15:41)
[2017-02-06] MEDS ORDERED: NYSTATIN100000 UNI SSP (15:44)
[2017-02-06] MEDS ORDERED: PERCOCET 5-3251 EACH PO (15:55)
[2017-02-06] MEDS ORDERED: VOLTAREN100 G1 TP (15:58)
[2017-02-06] MEDS ORDERED: ZOLOFT100 M1 PO (16:06)
[2017-02-06] MEDS ORDERED: SPIRIVA RESPIMAT4 G1 INH (16:08)
[2017-02-06] MEDS ORDERED: SULFAMYLON60 GM TOP (16:17)
== END 2016-09-18 21:55 | DRG 617 ==
LOC: EDMED 18:10 → EMR2 21:18 → 5WD 23:30 → BURN 09-16 15:16 → 5WD 09-16 15:38
PROVIDERS: Emergency Medicine; Internal Medicine; Surgery; ADMIT Internal Medicine
PROC: 0Y6Q0Z0 Detachment at Left 1st Toe, Complete, Open Approach (ICD-10-PCS; principal; 2016-09-16)
DX: E11.621 Type 2 diabetes mellitus with foot ulcer (principal); M86.8X7 Other osteomyelitis, ankle and foot; E11.65 Type 2 diabetes mellitus with hyperglycemia; E66.01 Morbid (severe) obesity due to excess calories; L03.116 Cellulitis of left lower limb; L02.612 Cutaneous abscess of left foot; B95.2 Enterococcus as the cause of diseases classified elsewhere; E11.42 Type 2 diabetes mellitus with diabetic polyneuropathy; J44.9 Chronic obstructive pulmonary disease, unspecified; F17.220 Nicotine dependence, chewing tobacco, uncomplicated; F32.9 Major depressive disorder, single episode, unspecified; Z68.37 Body mass index [BMI] 37.0-37.9, adult; L97.529 Non-pressure chronic ulcer of other part of left foot with unspecified severity; J45.909 Unspecified asthma, uncomplicated; Z88.8 Allergy status to other drugs, medicaments and biological substances; Z91.030 Bee allergy status; E11.628 Type 2 diabetes mellitus with other skin complications; Z79.4 Long term (current) use of insulin; E11.69 Type 2 diabetes mellitus with other specified complication
CPT/HCPCS: J1650; J1815; J2270; J2405; J2543; J3370; J7030; J7999

== ENCOUNTER 2016-10-29 14:31 | Inpatient (IN) | payer MEDICARE ==
[~2016-10-29 14:31] MED LIST changes: +AMOXICILLIN500 M1 PO; +FLONASE ALLERG9.9 ML; +HUMALOG100 UNITS/ SC; +OXYGEN INH; +VIBRAMYCIN100 M1 PO
[2016-10-29] MEDS ORDERED: MELOXICAM15 M1 PO (15:10)
[2016-10-29 16:12] LABS: BASO % 0.4 % (0-2); EOS % 0.7 % (0-7); EOSINOPHIL ABSOLUTE COUNT 0.1 tho/cmm (0.0-0.7); HCT-HEMATOCRIT 41.3 % (34.0-49.0); HGB-HEMOGLOBIN 13.5 gm/dl (12.0-15.5); IMMATURE GRANULOCYTES ABSOLUTE 0.01 tho/cmm (0-0.03); IMMATURE GRANULOCYTES PERCENT 0.1 % (0-0.3); LYMPH % 30.4 % (20-45); LYMPH ABSOLUTE COUNT 2.5 tho/cmm (0.8-4.5); MCH (MEAN CORPUSCULAR HGB) 30.5 pg (28.0-32.0); MCHC MEAN CORPUSCULAR HGB CONC 32.7 % (32.0-36.0); MCV (MEAN CELL VOLUME) 93.4 fl (82.0-96.0); MEAN PLATELET VOLUME 11.9 cmc (9.4-12.4); MONO % 8.6 % (0-12); MONOCYTE ABSOLUTE COUNT 0.7 tho/cmm (0.0-1.2); NEUTROPHIL ABSOLUTE COUNT 4.8 tho/cmm (1.6-8.0); NEUTROPHIL-AUTOMATED 4.8 tho/cmm (1.6-8.0); NEUTROPHILS % 59.8 % (40-80); PLATELET COUNT 185 tho/cmm (150-450); RED BLOOD COUNT 4.42 mil/cmm (4.00-5.20); WHITE BLOOD COUNT 8.1 tho/cmm (4.0-10.0)
[2016-10-29 16:13] LABS: ANION GAP 12 mmol/L (0-20); BLOOD UREA NITROGEN 12 mg/dl (6-24); CARBON DIOXIDE-VENOUS 26 mmol/L (22-32); CHLORIDE 100 mmol/l (96-110); CREATININE 1.06 mg/dl (0.50-1.10); GLUCOSE 300 mg/dL (70-110); POTASSIUM 4.1 mmol/L (3.7-5.1); SODIUM 134 mmol/L (135-145); eGFR VALUE FOR BLACK 72 mL/Min
--- NOTE | 2016-10-29 20:34 | NUR ---
VIRTUAL CARE NOTE: PT. IN BED. STATES PAIN ISN'T TOLERABLE WITH CURRENT PAIN MEDICATION. MEDICATION LIST FROM HOME REVIEWED AND EDUCATION PROVIDED THAT THIS NURSE WANTED TO ASK WHAT PAIN MEDS HAS WORKED FOR HER PRIOR AND TO CLARIFY HER HOME MEDS BECAUSE WE HAD TWO SHEETS THAT DIDN'T MATCH. INSTRUCTED TO CALL FOR FURTHER NEEDS AND INFORMED THIS NURSE WILL CALL DOCTOR FOR FURTHER PAIN MED ORDERS.
[2016-10-29] MEDS ORDERED: PERCOCET 5-3251 EACH PO (23:45)
--- NOTE | 2016-10-30 21:23 | NUR ---
VIRTUAL CARE NOTE: PT. IN BED. HAS QUESTIONS REGARDING HER STAFF HAS BEEN GOWNING UP WITH NO HX OF MRSA. NOTED ON REPORT SHE THAT HAD HX, WILL NEED TO CLARIFY. STATES IS DOING WELL OTHERWISE. EXPLANS HER WISHES REGARDING HER DISCHARGE PLANNING. WILL PASS THIS INFORMATION ON TO DAY VIRTUAL STAFF FOR DISCHARGE ROUNDING. INSTRUCTED TO CALL FOR FUTURE NEEDS. STATES VERBAL UNDERSTANDING OF EDUCATION PROVIDED OF CONTACT PRECAUTIONS WITH PT. IN GENERAL ALSO.
--- NOTE | 2016-11-01 14:04 | NUR ---
VIRTUAL CARE NOTE: VISITED W/ PT AT THIS TIME. SHE WILL BE DISCHARGING HOME LATER THIS SHIFT DR AHUMADA JUST ROUNDED ON PT A FEW MINUTES AGO AND SAID SHE COULD GO HOME. WENT OVER A FEW THINGS WITH HER AT THIS TIME IN REGARDS TO DISCHARGE PLAN AND ANSWERED SOME OF HER QUESTIONS. SHE REQUESTS TO HAVE THE PHONE NUMBERS FOR HER PREVIOUS SURGEONS ON HER DC PAPERWORK SO SHE CAN CONTACT THEM ABOUT GETTING SOME TIME TO MEET WITH THEM ABOUT SOME QUESTIONS SHE HAS. PHONE NUMBERS ENTERED ON HER DC APPT SHEET. WILL AWAIT FURTHER INSTRUCTIONS RE: HER DC AND WILL INPUT INFORMATION INTO PAPERWORK FOR TEACHING. WILL CONT TO MONITOR. ELECTRONIC CHART REVIEWED.
[2016-11-01] MEDS ORDERED: BACTRIM DS TAB1 EAC2 PO (15:32)
--- NOTE | 2016-11-01 16:19 | NUR ---
161-VIRTUAL NURSE NOTE-DISCHARGE TEACHING COMPLETED WITH PATIENT. REVIEW F/U APPTS, WOUND CARE, S/S TO CALL SHARI SEVERINO ALONG WITH NEW MEDICATION WITH POSSIBLE SIDE EFFECTS. PATIENT VERBALIZES GOOD UNDERSTAND AND HAD NO FURTHER QUESTIONS. JEFF VARELA
[2016-12-07] MEDS ORDERED: HUMULIN R500 UNIT/1 SC (22:51)
[2016-12-10] MEDS ORDERED: SULFAMYLON SOL250 M1 TP (12:17)
[2016-12-10] MEDS ORDERED: PERCOCET 5-3251 EACH PO (12:19)
[2016-12-10] MEDS ORDERED: SINGULAIR10 M1 PO (12:21)
[2016-12-10] MEDS ORDERED: SULFAMYLON60 GM (12:23)
[2016-12-10] MEDS ORDERED: AUGMENTIN 875-1 EAC2 PO (12:26)
[2017-01-10] MEDS ORDERED: MINOCYCLINE HC100 M1 PO (15:23)
[2017-01-10] MEDS ORDERED: PERCOCET 5-3251 EACH PO (15:57)
[2017-01-10] MEDS ORDERED: SULFAMYLON SOL250 M1 TOP (15:58)
[2017-01-10] MEDS ORDERED: NYSTATIN100000 UNI SSW (16:03)
[2017-02-06] MEDS ORDERED: CYMBALTA60 M1 PO (15:36)
[2017-02-06] MEDS ORDERED: ADVAIR 25028 BLISTE1 PO (15:36)
[2017-02-06] MEDS ORDERED: CLEOCIN T30 ML TOP (15:38)
[2017-02-06] MEDS ORDERED: FLONASE ALLERG9.9 ML (15:39)
[2017-02-06] MEDS ORDERED: MINOCIN100 M2 PO (15:40)
[2017-02-06] MEDS ORDERED: MOMETASONE FURO30 M1 TOP (15:41)
[2017-02-06] MEDS ORDERED: NYSTATIN100000 UNI SSP (15:44)
[2017-02-06] MEDS ORDERED: PERCOCET 5-3251 EACH PO (15:55)
[2017-02-06] MEDS ORDERED: VOLTAREN100 G1 TP (15:58)
[2017-02-06] MEDS ORDERED: ZOLOFT100 M1 PO (16:06)
[2017-02-06] MEDS ORDERED: SPIRIVA RESPIMAT4 G1 INH (16:08)
[2017-02-06] MEDS ORDERED: SULFAMYLON60 GM TOP (16:17)
== END 2016-11-01 16:50 | DRG 603 ==
LOC: BRNOP 14:31 → 5WD 15:06
PROVIDERS: ADMIT Surgery
PROC: 05HC33Z Insertion of Infusion Device into Left Basilic Vein, Percutaneous Approach (ICD-10-PCS; principal; 2016-10-31)
DX: L03.116 Cellulitis of left lower limb (principal); E11.9 Type 2 diabetes mellitus without complications; Z79.4 Long term (current) use of insulin
CPT/HCPCS: C1751; J1815; J2543; J7050

== ENCOUNTER 2016-11-09 12:09 | Inpatient (IN) | payer MEDICARE ==
[~2016-11-09 12:09] MED LIST changes: +BACTRIM DS TAB1 EAC2 PO
[2016-11-09 17:14] LABS: BASO % 0.4 % (0-2); EOSINOPHIL ABSOLUTE COUNT 0.2 tho/cmm (0.0-0.7); HCT-HEMATOCRIT 34.6 % (34.0-49.0); HGB-HEMOGLOBIN 11.6 gm/dl (12.0-15.5); IMMATURE GRANULOCYTES ABSOLUTE 0.01 tho/cmm (0-0.03); IMMATURE GRANULOCYTES PERCENT 0.1 % (0-0.3); LYMPH % 45.1 % (20-45); LYMPH ABSOLUTE COUNT 3.8 tho/cmm (0.8-4.5); MCH (MEAN CORPUSCULAR HGB) 30.8 pg (28.0-32.0); MCHC MEAN CORPUSCULAR HGB CONC 33.5 % (32.0-36.0); MCV (MEAN CELL VOLUME) 91.8 fl (82.0-96.0); MEAN PLATELET VOLUME 11.6 cmc (9.4-12.4); MONO % 5.8 % (0-12); MONOCYTE ABSOLUTE COUNT 0.5 tho/cmm (0.0-1.2); NEUTROPHIL ABSOLUTE COUNT 3.9 tho/cmm (1.6-8.0); NEUTROPHIL-AUTOMATED 3.9 tho/cmm (1.6-8.0); NEUTROPHILS % 46.6 % (40-80); PLATELET COUNT 166 tho/cmm (150-450); RED BLOOD COUNT 3.77 mil/cmm (4.00-5.20); RED CELL DISTRIBUTION WIDTH 14.3 % (12.4-16.4); WHITE BLOOD COUNT 8.4 tho/cmm (4.0-10.0)
[2016-11-09 17:25] LABS: ANION GAP 10 mmol/L (0-20); BLOOD UREA NITROGEN 18 mg/dl (6-24); CALCIUM 8.9 mg/dl (8.5-10.5); CARBON DIOXIDE-VENOUS 28 mmol/L (22-32); CHLORIDE 106 mmol/l (96-110); CREATININE 1.19 mg/dl (0.50-1.10); GLUCOSE 213 mg/dL (70-110); POTASSIUM 4.2 mmol/L (3.7-5.1); SODIUM 140 mmol/L (135-145); eGFR VALUE FOR BLACK 63 mL/Min
[2016-11-11 06:05] LABS: C-REACTIVE PROTEIN 2.6 mg/dl (0-0.9)
[2016-11-11 06:31] LABS: PROCALCITONIN 0.07 ng/ml (0.05-0.09)
[2016-11-11] MEDS ORDERED: SULFAMYLON60 GM TOP (11:49)
[2016-12-07] MEDS ORDERED: HUMULIN R500 UNIT/1 SC (22:51)
[2016-12-10] MEDS ORDERED: SULFAMYLON SOL250 M1 TP (12:17)
[2016-12-10] MEDS ORDERED: PERCOCET 5-3251 EACH PO (12:19)
[2016-12-10] MEDS ORDERED: SINGULAIR10 M1 PO (12:21)
[2016-12-10] MEDS ORDERED: SULFAMYLON60 GM (12:23)
[2016-12-10] MEDS ORDERED: AUGMENTIN 875-1 EAC2 PO (12:26)
[2017-01-10] MEDS ORDERED: MINOCYCLINE HC100 M1 PO (15:23)
[2017-01-10] MEDS ORDERED: PERCOCET 5-3251 EACH PO (15:57)
[2017-01-10] MEDS ORDERED: SULFAMYLON SOL250 M1 TOP (15:58)
[2017-01-10] MEDS ORDERED: NYSTATIN100000 UNI SSW (16:03)
[2017-02-06] MEDS ORDERED: CYMBALTA60 M1 PO (15:36)
[2017-02-06] MEDS ORDERED: ADVAIR 25028 BLISTE1 PO (15:36)
[2017-02-06] MEDS ORDERED: CLEOCIN T30 ML TOP (15:38)
[2017-02-06] MEDS ORDERED: FLONASE ALLERG9.9 ML (15:39)
[2017-02-06] MEDS ORDERED: MINOCIN100 M2 PO (15:40)
[2017-02-06] MEDS ORDERED: MOMETASONE FURO30 M1 TOP (15:41)
[2017-02-06] MEDS ORDERED: NYSTATIN100000 UNI SSP (15:44)
[2017-02-06] MEDS ORDERED: PERCOCET 5-3251 EACH PO (15:55)
[2017-02-06] MEDS ORDERED: VOLTAREN100 G1 TP (15:58)
[2017-02-06] MEDS ORDERED: ZOLOFT100 M1 PO (16:06)
[2017-02-06] MEDS ORDERED: SPIRIVA RESPIMAT4 G1 INH (16:08)
[2017-02-06] MEDS ORDERED: SULFAMYLON60 GM TOP (16:17)
== END 2016-11-11 12:30 | DRG 638 ==
LOC: BRNOP 12:09 → 5WE 13:31
PROVIDERS: Family Medicine; Internal Medicine Infectious Disease; ADMIT Surgery
PROC: 02HV33Z Insertion of Infusion Device into Superior Vena Cava, Percutaneous Approach (ICD-10-PCS; principal; 2016-11-09)
DX: E11.621 Type 2 diabetes mellitus with foot ulcer (principal); L03.116 Cellulitis of left lower limb; L97.529 Non-pressure chronic ulcer of other part of left foot with unspecified severity; L89.892 Pressure ulcer of other site, stage 2; E11.42 Type 2 diabetes mellitus with diabetic polyneuropathy; E66.9 Obesity, unspecified; E11.65 Type 2 diabetes mellitus with hyperglycemia; G47.33 Obstructive sleep apnea (adult) (pediatric); F32.9 Major depressive disorder, single episode, unspecified; J44.9 Chronic obstructive pulmonary disease, unspecified; Z72.0 Tobacco use; Z91.19 Patient's noncompliance with other medical treatment and regimen; Z79.4 Long term (current) use of insulin; Z68.38 Body mass index [BMI] 38.0-38.9, adult
CPT/HCPCS: C1751; G8978-GP-CI; G8979-GP-CI; G8980-GP-CI; J1650; J1815; J2543; J3370; J7030; J7050